=== PATIENT | female | born 1990 | race Caucasian/White ===

== ENCOUNTER 2017-11-28 14:58 | Emergency (ER) | payer OTHER, MEDICAID ==
[~2017-11-28] VITALS: Ht 149.9 cm; Wt 52.2 kg
[2017-11-28 15:04] VITALS: BP 131/80
[2017-11-28] MEDS ORDERED: PENICILLIN VK500 MG PO (15:30)
[2017-11-28] MEDS ORDERED: NORCO 5-325 TA1 EAC1 PO (15:30)
== END 2017-11-28 15:38 | disposition home or self-care (01) ==
LOC: M.ERS 14:58
DX: K02.9 Dental caries, unspecified (principal); K04.7 Periapical abscess without sinus